=== PATIENT | female | born 1960 | race American Indian/Alaskan Native ===

== ENCOUNTER 2016-12-14 06:06 | Day surgery (SDC) | payer BC ==
--- NOTE | 2016-12-14 07:30 | Anesthesia Consultation ---
Anesthesia Consult and Med Hx Date of service: 12/14/16 - Airway Anesthetic Teeth Evaluation: Good ROM Head & Neck: Adequate Mental/Hyoid Distance: Adequate Mallampati Class: Class III Intubation Access Assessment: Possibly Difficult - Pre-Operative Health Status ASA Pre-Surgery Classification: ASA3 Proposed Anesthetic Plan: MAC - Pulmonary Hx Asthma: Yes Hx Sleep Apnea: Yes - Cardiovascular System Hx Hypertension: Yes - Central Nervous System Hx Psychiatric Problems: Yes (depression) - Gastrointestinal Hx Gastroesophageal Reflux Disease: Yes (s/p gastric bypass, revision) - Other Systems Hx Cancer: Yes (colon CA, colon resection 2017)
--- NOTE | 2016-12-14 07:30 | Anesthesia Day of Surgery ---
Anesthesia Day of Surgery - Day of Surgery Patient Examined: Yes Patient H&P Reviewed: Yes Patient is NPO: Yes
[2016-12-14] MEDS ORDERED: DIPRIVAN 10 MG/ML IV ONE ×2 (07:38→08:26)
[2016-12-14] MEDS ORDERED: NACL 0.9% 1000 ML 1,000 ML IV SCH (08:00)
--- NOTE | 2016-12-14 08:34 | Discharge Summary ---
Providers - Providers Attending physician: SAIRA CALDERA Hospitalization Condition: Good Procedures: upper endoscopy Hospital course: 56 y.o. 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 Pt had an upper GI series secondary to regurgitation of food. She had the EGD without issues. A dilated pouch and possible dilated separate pouch was noted both below the GE junction. She was discharged home the same day without issues. Disposition: DC- TO HOME OR SELFCARE Core Measure Documentation - Palliative Care Palliative Care/ Comfort Measures: Not Applicable - Core Measures Any of the following diagnoses?: none Exam - Physical Exam Narrative exam: no change from prior - Constitutional Vitals: Temp Pulse Resp BP Pulse Ox 98.1 F 56 L 15 122/78 100 12/14/16 07:57 12/14/16 07:57 12/14/16 07:57 12/14/16 07:57 12/14/16 07:57 Plan Activity: other (no driving for 24 hrs. ) Follow up with: SAIRA CALDERA MD [Staff Physician] - 7 Days (The office will be scheduling a CT abd/pelvis to evalulate possible diverticulum vs. residual pouch. Follow up in the office after CT to review results. CT and visit to Dr. Spence office should be made prior to surgery. )
--- NOTE | 2016-12-14 08:37 | Post Anesthesia Evaluation ---
- Post Anesthesia Evaluation Patient Participated: Yes Airway Patent: Yes Stable Respiratory Function: Yes Nausea/Vomiting: No Temp > 96.8F: Yes Pain Manageable: Yes Adequeate Hydration: Yes Anesthesia Complications: No Block Receding Appropriately: Not Applicable Patient on Ventilator: No
[2016-12-14 08:56] VITALS: BP 117/68
--- NOTE | 2016-12-14 09:15 | Operative Report ---
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 SURGEON: Dr. Nimesh Aden ALL TERRAIN VEHICLE RACER: Dr. Norman Wynn D.O. TYPE OF ANESTHESIA: MAC. ESTIMATED BLOOD LOSS: None. COMPLICATIONS: None. SPECIMENS REMOVED: None. FINDINGS: 1. normal esophagus 2. gastric pouch - 60ml 3. gastrojejunal anastomosis is 10 mm 4. secondary pouch/possible diverticulum adjacent to the gastric pouch, approx 40ml. Food contents within it. INDICATIONS:INDICATION FOR PROCEDURE: Patient is a 56-year-old F s/p gastric bypass in 2004. She revision of her GJ anatomosis in 2013, possible sclerotherapy. She complained of several months of regurgitation of food directly after eating. She had an upper GI series that showed a epiphrenic diverticulum. PROCEDURE DETAILS: After consent was reviewed, patient was taken back to the operating room where patient was placed in the left lateral decubitus position and a bite block was placed in the mouth. After a time-out was called, MAC anesthesia was initiated. I then passed the endoscope into the patients oropharynx, into the esophagus, visualized the entire esophagus, which was all within normal limits. After passing the GE junction a outpouching was noted at 2 O'clock. This outpouching was blind and did not lead anywhere. It contained food was was removed. Directly passed this "out pouching" was the gastric pouch which was approx 60cm and normal appearing. The gastrojejunal anastomosis was normal at about 10mm. The proximal portion of the salome limb was normal. I then desufflated the gastric pouch and removed the endoscope. Patient tolerated procedure well and was transferred to recovery room in good and stable condition. No esophageal diverticulum was noted.
== END 2016-12-14 06:07 | disposition home or self-care (01) ==
LOC: GIO 06:06
PROVIDERS: ATTEND Specialist
DX: K31.4 Gastric diverticulum (principal); I10 Essential (primary) hypertension; J45.909 Unspecified asthma, uncomplicated; K21.9 Gastro-esophageal reflux disease without esophagitis; M19.90 Unspecified osteoarthritis, unspecified site; F32.9 Major depressive disorder, single episode, unspecified; Z86.2 Personal history of diseases of the blood and blood-forming organs and certain disorders involving the immune mechanism; Z90.710 Acquired absence of both cervix and uterus; Z98.84 Bariatric surgery status; Z90.49 Acquired absence of other specified parts of digestive tract; Z96.653 Presence of artificial knee joint, bilateral; Z85.038 Personal history of other malignant neoplasm of large intestine; Z82.49 Family history of ischemic heart disease and other diseases of the circulatory system; Z80.0 Family history of malignant neoplasm of digestive organs; Z82.61 Family history of arthritis; Z80.42 Family history of malignant neoplasm of prostate; Z80.3 Family history of malignant neoplasm of breast; Z83.3 Family history of diabetes mellitus; Z88.0 Allergy status to penicillin
CPT/HCPCS: 43235; J2704; J7030

== ENCOUNTER 2017-01-25 07:48 | Inpatient (IN) | payer BC ==
--- NOTE | 2017-01-20 10:01 | Anesthesia Consultation ---
Anesthesia Consult and Med Hx Date of service: 01/20/17 - Airway Anesthetic Teeth Evaluation: Good ROM Head & Neck: Adequate Mental/Hyoid Distance: Adequate Mallampati Class: Class II Intubation Access Assessment: Probably Good - Pulmonary Exam CTA: Yes - Cardiac Exam Cardiac Exam: RRR - Pre-Operative Health Status ASA Pre-Surgery Classification: ASA3 Proposed Anesthetic Plan: General - Pulmonary Hx Asthma: Yes Hx Pneumonia: Yes Hx Sleep Apnea: Yes (doesnt use cpap) - Cardiovascular System Hx Hypertension: Yes (3Y) - Central Nervous System Hx Psychiatric Problems: Yes - Gastrointestinal Hx Gastroesophageal Reflux Disease: Yes (s/p gastric bypass, revision) - Hematic Hx Anemia: Yes - Other Systems Hx Alcohol Use: Yes (OCCAS) Hx Substance Use: No Hx Cancer: Yes (history of colon ca)
[~2017-01-25 07:48] MED LIST: APRESOLINE IV PRN; FLAGYL 500 MG/100 ML 500 MG/100 ML BAG IV NR; LACTATED RINGERS 1,000 ML IV SCH; LEVAQUIN 500MG/100ML 500 MG/100 ML BAG IV NR; LOVENOX SUB-Q NR; MORPHINE IV PRN; MYLICON PO PRN; NORCO PO PRN; PEPCID IV NR; REGLAN IV PRN; TRANSDERM-SCOP TD NR; ZOFRAN IV PRN
--- NOTE | 2017-01-25 08:26 | Anesthesia Day of Surgery ---
Anesthesia Day of Surgery - Day of Surgery Patient Examined: Yes Patient H&P Reviewed: Yes Patient is NPO: Yes
[2017-01-25] MEDS ORDERED: NACL BACTERIOSTATIC INFILTRATI ONE (08:55)
[2017-01-25] MEDS: LACTATED RINGERS 1,000 ML IV SCH ×2 (09:20→22:27)
[2017-01-25 09:37] LABS: Basophils % (Auto) 0.6 % (0.0-1.8); Eosinophils % (Auto) 2.3 % (0.0-4.3); Hematocrit 40.1 % (30.3-42.9); Hemoglobin 12.6 gm/dl (10.1-14.3); Mean Corpuscular HGB Conc 32 % (30-34); Mean Corpuscular Hemoglobin 27 pg (28-32); Mean Corpuscular Volume 84 fl (79-97); Platelet Count 149 K/mm3 (140-440); Red Blood Count 4.77 M/mm3 (3.65-5.03); White Blood Count 3.3 K/mm3 (4.5-11.0)
[2017-01-25 09:44] LABS: Bacteria,Urine 1+ /HPF (Negative); Bilirubin,Urine NEG (Negative); Blood,Urine NEG (Negative); Ketones,Urine NEG (Negative); Leukocyte Esterase,Urine NEG (Negative); Mucus,Urine FEW /HPF; Nitrite,Urine NEG (Negative); Protein,Urine <15 mg/dL mg/dL (Negative); Urobilinogen,Urine < 2.0 mg/dL (<2.0)
[2017-01-25 09:45] LABS: Red Cell Distribution Width 21.8 % (13.2-15.2)
[2017-01-25 09:48] LABS: Albumin 3.9 g/dL (3.9-5); Albumin/Globulin Ratio 1.2 %; Alkaline Phosphatase 140 units/L (35-129); BUN/Creatinine Ratio 18; Blood Urea Nitrogen 7 mg/dL (7-17); Calcium 8.7 mg/dL (8.4-10.2); Carbon Dioxide 27 mmol/L (22-30); Chloride 107.4 mmol/L (98-107); Glucose 83 mg/dL (65-100); Sodium 144 mmol/L (137-145); Total Protein 7.1 g/dL (6.3-8.2)
[2017-01-25 09:50] LABS: Alanine Aminotransferase 15 units/L (7-56); Anion Gap 14 mmol/L; Potassium 4.1 mmol/L (3.6-5.0)
[2017-01-25] MEDS ORDERED: DIPRIVAN 10 MG/ML IV ONE (10:06)
[2017-01-25] MEDS ORDERED: SUBLIMAZE ONE (10:07)
[2017-01-25] MEDS ORDERED: XYLOCAINE MPF 2% ONE (10:08)
[2017-01-25] MEDS ORDERED: ZEMURON IV ONE (10:08)
[2017-01-25] MEDS ORDERED: MARCAINE 0.5% 30 ML INFILTRATI ONE (10:14)
[2017-01-25] MEDS ORDERED: XYLOCAINE 1% 20 mL ONE (10:15)
[2017-01-25] MEDS ORDERED: MARCAINE 0.5% INFILTRATI ONE (10:26)
[2017-01-25] MEDS ORDERED: NACL 0.9% IR ONE (10:26)
[2017-01-25] MEDS ORDERED: XYLOCAINE 1% 20 mL IR ONE (10:26)
[2017-01-25] MEDS ORDERED: DECADRON ONE (11:17)
[2017-01-25] MEDS ORDERED: ZOFRAN ONE (11:53)
[2017-01-25] MEDS ORDERED: NEO SYNEPHRINE/NS Syringe(OR USE) IV ONE (13:00)
[2017-01-25] MEDS ORDERED: ROBINUL ONE (13:03)
[2017-01-25] MEDS ORDERED: NEOSTIGMINE ONE (13:03)
[2017-01-25] MEDS ORDERED: DILAUDID ONE (13:04)
[2017-01-25] MEDS: DILAUDID IV PRN ×3 (14:00→22:23)
[2017-01-26] MEDS: LACTATED RINGERS 1,000 ML IV SCH (08:12)
[2017-01-26 08:16] VITALS: BP 126/76
[2017-01-26 09:37] LABS: Basophils % (Auto) 0.3 % (0.0-1.8); Eosinophils % (Auto) 2.1 % (0.0-4.3); Hematocrit 40.2 % (30.3-42.9); Hemoglobin 12.6 gm/dl (10.1-14.3); Mean Corpuscular HGB Conc 31 % (30-34); Mean Corpuscular Hemoglobin 27 pg (28-32); Mean Corpuscular Volume 86 fl (79-97); Platelet Count 149 K/mm3 (140-440); White Blood Count 6.4 K/mm3 (4.5-11.0)
[2017-01-26 09:38] LABS: Red Cell Distribution Width 21.7 % (13.2-15.2)
[2017-01-26 09:52] LABS: Alanine Aminotransferase 44 units/L (7-56); Albumin 3.5 g/dL (3.9-5); Albumin/Globulin Ratio 1.2 %; Alkaline Phosphatase 116 units/L (35-129); Anion Gap 17 mmol/L; BUN/Creatinine Ratio 16; Blood Urea Nitrogen 8 mg/dL (7-17); Calcium 8.3 mg/dL (8.4-10.2); Carbon Dioxide 22 mmol/L (22-30); Chloride 104.2 mmol/L (98-107); Glucose 65 mg/dL (65-100); Sodium 139 mmol/L (137-145); Total Protein 6.4 g/dL (6.3-8.2)
[2017-01-26] MEDS ORDERED: LOVENOX SUB-Q SCH (10:00)
--- NOTE | 2017-01-26 17:26 | Discharge Summary ---
Providers - Providers Date of Admission: 01/25/17 07:48 Attending physician: SAIRA CALDERA Primary care physician: PROCESSING SUPERVISOR Hospitalization Reason for admission: surgery Condition: Good Procedures: 56 y.o. F admitted for surgery. She tolerated the procedure well. She was able to tolerated clears and ambulate prior to discharge. She denies nausea or vomiting. Prior to discharge her pain was controlled. Disposition: DC-01 TO HOME OR SELFCARE Core Measure Documentation - Palliative Care Palliative Care/ Comfort Measures: Not Applicable - Core Measures Any of the following diagnoses?: none Exam - Physical Exam Narrative exam: Gen: A+Ox 3 resp: equal rise and fall of chest abd: dressings cdi. tender at incision sites. no guarding no rebound. ext: no c/c/e - Constitutional Vitals: Temp Pulse Resp BP Pulse Ox 99.3 F 69 18 126/76 99 01/26/17 07:38 01/26/17 07:38 01/26/17 07:38 01/26/17 07:38 01/26/17 07:38 Plan Activity: other (no lifting >15lbs for 6 weeks ) Diet: clear liquids (sugar free ) Wound: keep clean and dry Additional Instructions: follow up at wellness check in office. Follow up with: PRIMARY CAREMD [Primary Care Provider] - 7 Days
[2017-01-28] MEDS ORDERED: TRANSDERM-SCOP TD SCH (10:00)
--- NOTE | 2017-02-05 09:17 | Operative Report ---
PREOPERATIVE DIAGNOSES: Epigastric pain, hiatal hernia with incarcerated pouch of gastric bypass into the chest with subsequent dilatation of the esophagus and epiphrenic diverticulum of the esophagus. 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 PROCEDURE: Laparoscopic reduction of pouch from the chest and hiatal hernia repair. SURGEON: Mitesh Beavers M..D. INSIDE UPHOLSTERER: Rosalino Littlejohn. ANESTHESIA: General. BRIEF HISTORY AND PHYSICAL: This patient came into the office and is a patient who is status post laparoscopic Tamir-en-Y gastric bypass. She had this procedure several years ago and now presents with symptoms of epigastric abdominal pain, dysfunction of her pouch, and with a recent diagnosis on upper GI series that showed that she had a wide-mouthed diverticulum of the esophagus in the epiphrenic region. We performed an EGD on her and it appeared that this was a pouch that was out through to the esophagus and that her gastric pouch was above the level of the diaphragm creating a partial obstruction below the GE junction. She therefore was admitted to undergo reduction of this pouch and closure of her hiatus to see if this pulsion diverticulum would resolve on its own prior to possible thoracoscopic removal. DESCRIPTION OF PROCEDURE: The patient was placed on the operating table in the dorsal supine position and following a satisfactory induction of general anesthesia, the abdomen was prepped using Hibiclens solution and draped in sterile fashion. Then using a sharp skin knife, a skin incision was made at the umbilicus and Veress needle was placed with insufflation of CO2. After the abdominal cavity was adequately insufflated, a 10/12 mm trocar was then placed into the umbilicus and the scope was placed to place other trocars under direct vision. After all the trocars were placed, we then lifted up liver and commenced through lysis of adhesions. As we approached the hiatus, it was obvious that a portion of the pouch had moved into the chest through the hiatus creating an obstruction at the level of the pouch below it. We, therefore, serially lysed the adhesions around the hiatus and through the hiatus and freeing up a portion of the stomach and bringing it into the abdominal cavity. After we did this, we tried to secure as much esophagus in the intra-abdominal cavity as we possibly could prior to then closing the hiatus with interrupted simple sutures of 0 Surgidac. After this was accomplished, it was noted that the patient's excess pouch was quite large and we therefore transected this pouch with the linear cutting stapling device and then oversew the staple line with a running suture of 0 Surgidac. An intraoperative endoscopy was performed and it was noted that the patient did indeed still have a large wide-mouthed diverticulum. As mentioned above, it is the hopes that since this diverticulum appeared to be that of a pulsion diverticulum without the obstruction that this diverticulum may resolve on its own. If not, the patient will be referred back to the thoracic surgeon where she may need to undergo transthoracic resection of the epiphrenic diverticulum. After all bleeding was controlled and the abdominal cavity was pristine, the abdominal cavity was desufflated and the fascial defect at the umbilicus was closed with interrupted simple suture of #1 PDS. The skin was closed using interrupted subdermal sutures of 4-0 Monocryl. Steri-Strips were applied to the wound. The patient tolerated the procedure well and was sent to recovery room in satisfactory condition. JOB# [id number] YONIS/ARLENE SÁNCHEZ
== END 2017-01-26 15:30 | disposition home or self-care (01) | DRG 328 ==
LOC: 3A 07:48 → EDSTATUS 13:00 → 3B-SURG 13:51
PROVIDERS: ADMIT Specialist; ATTEND Specialist
PROC: 0BQT4ZZ Repair Diaphragm, Percutaneous Endoscopic Approach (ICD-10-PCS; principal; 2017-01-26)
PROC: 0DS64ZZ Reposition Stomach, Percutaneous Endoscopic Approach (ICD-10-PCS; 2017-01-26)
PROC: 0DT64ZZ Resection of Stomach, Percutaneous Endoscopic Approach (ICD-10-PCS; 2017-01-26)
DX: K95.89 Other complications of other bariatric procedure (principal); K22.5 Diverticulum of esophagus, acquired; K44.9 Diaphragmatic hernia without obstruction or gangrene; Z68.38 Body mass index [BMI] 38.0-38.9, adult; E66.01 Morbid (severe) obesity due to excess calories; J45.909 Unspecified asthma, uncomplicated; M19.90 Unspecified osteoarthritis, unspecified site; K30 Functional dyspepsia; I10 Essential (primary) hypertension; K21.9 Gastro-esophageal reflux disease without esophagitis; E55.9 Vitamin D deficiency, unspecified; E11.9 Type 2 diabetes mellitus without complications; Z96.653 Presence of artificial knee joint, bilateral; F32.9 Major depressive disorder, single episode, unspecified; Z90.710 Acquired absence of both cervix and uterus; Z80.0 Family history of malignant neoplasm of digestive organs; Z87.01 Personal history of pneumonia (recurrent); Z85.038 Personal history of other malignant neoplasm of large intestine; Z87.11 Personal history of peptic ulcer disease; Z80.42 Family history of malignant neoplasm of prostate; Z80.3 Family history of malignant neoplasm of breast; Z83.3 Family history of diabetes mellitus; Z98.84 Bariatric surgery status; Y83.2 Surgical operation with anastomosis, bypass or graft as the cause of abnormal reaction of the patient, or of later complication, without mention of misadventure at the time of the procedure
CPT/HCPCS: 36415; 80053; 81001; 85025; C9250; J1100; J1170; J1650; J1956; J2270; J2370; J2405; J2704; J2710; J3010; J7120